=== PATIENT | male | born 1955 | race Caucasian/White ===

== ENCOUNTER 2022-03-26 14:22 | Outpatient (CLI) | payer MEDICARE | END 2022-03-26 14:23 | disposition home or self-care (01) | LOC: SCSMRI 14:22 | PROVIDERS: ATTEND Radiology Radiation Oncology | DX: I67.1 Cerebral aneurysm, nonruptured (principal); Z86.69 Personal history of other diseases of the nervous system and sense organs | CPT/HCPCS: 70553 ==